=== PATIENT | male | born 1950 | race Two or more races ===

== ENCOUNTER 2019-01-06 17:36 | Inpatient (IN) | payer SELFPAY ==
--- NOTE | 2019-01-06 18:09 | ED Physician Documentation ---
History of Present Illness - Stated complaint Stated Complaint: GLF/DIZZY - Chief complaint Chief Complaint: Neuro - Additonal information Additional information: This is a 68-year-old male with a history of diabetes who presents due to left- sided weakness and poor coordination. Around noon patient began having some difficulty maintaining his balance and falling over. He also felt weak on his left side. Since this time he has continued to have progressive weakness and discoordination on the left Side. His family has not noticed any facial droop, or dysarthria. He has never had a stroke before. He has diabetes, glucose was ~200 in triage. Review of Systems Eyes: denies: Loss of vision Ears: denies: Loss of hearing Respiratory: denies: Dyspnea GI: denies: Abdominal Pain : denies: Dysuria Neurologic: reports: Focal weakness PD PAST MEDICAL HISTORY - Allergies Allergies/Adverse Reactions: Allergies Allergy/AdvReac Type Severity Reaction Status Date / Time No Known Drug Allergies Allergy Verified 01/06/19 17:44 PD ED PE NORMAL - Vitals Vital signs reviewed: Yes - General General: Alert and oriented X 3 - HEENT HEENT: Atraumatic, PERRL - Neck Neck: Supple, no meningeal sign - Cardiac Cardiac: RRR - Respiratory Respiratory: No respiratory distress, Clear bilaterally - Abdomen Abdomen: Soft, Non tender, Non distended - Derm Derm: Warm and dry - Extremities Extremities: No deformity - Neuro Neuro: Alert and oriented X 3, caregivers non medical 2-12 intact, No sensory deficit, Normal speech, Other (4+ out of 5 strength with elbow flexion extension on the left. Hand squeeze is 5 out of 5 symmetric. There is no arm drift on the left or right. There is slight left-sided leg drift. Patient has ataxia with [id number] on the left. He appears to have dysmetria at the limits of extension of his left arm as well. He is unable to stand without assistance, and has a ataxic gait. Visual pérez are intact.) - Psych Psych: Normal mood, Normal affect Results - Vitals Vitals: Vital Signs - 24 hr 01/06/19 01/06/19 01/06/19 17:44 19:13 19:30 Temperature 36.5 C Heart Rate 77 68 71 Respiratory 14 12 13 Rate Blood Pressure 172/86 H 124/77 130/76 O2 Saturation 99 97 96 Oxygen O2 Source Room air - EKG (time done) 18:31 Other comments: Other comments (Rate 81, rhythm sinus, there is no ST segment elevation or depression, T wave flattening in aVF. QTc 445) - Labs Labs: Laboratory Tests 01/06/19 01/06/19 01/06/19 17:54 18:05 18:05 WBC 5.2 RBC 4.68 L Hgb 14.2 Hct 40.6 L MCV 86.8 MCH 30.3 MCHC 35.0 RDW 13.0 Plt Count 195 MPV 9.6 Neut # (Auto) 3.0 Lymph # (Auto) 1.7 [place] # (Auto) 0.3 Eos # (Auto) 0.2 Baso # (Auto) 0.0 Absolute Nucleated RBC 0.00 Nucleated RBC % 0.0 PT 12.6 INR 1.1 APTT 29.5 Sodium Potassium Chloride Carbon Dioxide Anion Gap BUN Creatinine Estimated GFR (MDRD) Glucose POC Whole Bld Glucose 201 H Calcium Total Bilirubin AST ALT Alkaline Phosphatase Total Protein Albumin Globulin Albumin/Globulin Ratio Lipase TSH Urine Color Urine Clarity Urine pH Ur Specific [place] Urine Protein Urine Glucose (UA) Urine Ketones Urine Occult Blood Urine Nitrite Urine Bilirubin Urine Urobilinogen Ur Leukocyte Esterase Ur Microscopic Review Urine Culture Comments Ethyl Alcohol 01/06/19 01/06/19 01/06/19 18:05 18:05 18:40 WBC RBC Hgb Hct MCV MCH MCHC RDW Plt Count MPV Neut # (Auto) Lymph # (Auto) [place] # (Auto) Eos # (Auto) Baso # (Auto) Absolute Nucleated RBC Nucleated RBC % PT INR APTT Sodium 136 Potassium 3.5 Chloride 98 L Carbon Dioxide 28 Anion Gap 10.0 BUN 15 Creatinine 1.2 Estimated GFR (MDRD) 60 L Glucose 235 H POC Whole Bld Glucose 199 H Calcium 9.9 Total Bilirubin 1.4 H AST 21 ALT 20 Alkaline Phosphatase 82 Total Protein 8.3 H Albumin 4.6 Globulin 3.7 Albumin/Globulin Ratio 1.2 Lipase 31 TSH 3.03 Urine Color Urine Clarity Urine pH Ur Specific [place] Urine Protein Urine Glucose (UA) Urine Ketones Urine Occult Blood Urine Nitrite Urine Bilirubin Urine Urobilinogen Ur Leukocyte Esterase Ur Microscopic Review Urine Culture Comments Ethyl Alcohol < 5.0 01/06/19 18:45 WBC RBC Hgb Hct MCV MCH MCHC RDW Plt Count MPV Neut # (Auto) Lymph # (Auto) [place] # (Auto) Eos # (Auto) Baso # (Auto) Absolute Nucleated RBC Nucleated RBC % PT INR APTT Sodium Potassium Chloride Carbon Dioxide Anion Gap BUN Creatinine Estimated GFR (MDRD) Glucose POC Whole Bld Glucose Calcium Total Bilirubin AST ALT Alkaline Phosphatase Total Protein Albumin Globulin Albumin/Globulin Ratio Lipase TSH Urine Color LT. YELLOW Urine Clarity CLEAR Urine pH 6.0 Ur Specific [place] <=1.005 Urine Protein NEGATIVE Urine Glucose (UA) 250 H Urine Ketones NEGATIVE Urine Occult Blood NEGATIVE Urine Nitrite NEGATIVE Urine Bilirubin NEGATIVE Urine Urobilinogen 0.2 (NORMAL) Ur Leukocyte Esterase NEGATIVE Ur Microscopic Review NOT INDICATED Urine Culture Comments NOT INDICATED Ethyl Alcohol - Rads (name of study) CT head WO Radiology: Other (Area of old infarct without acute bleed or intracranial abnormality) CT angio Radiology: Prelim report reviewed (No evidence of acute large vessel occlusion, dissection, aneurysm. Several areas of 50-70% narrowing.) PD MEDICAL DECISION MAKING - ED course Complexity details: considered differential (Stroke, TIA, acute vestibular syndrome, electrolyte abnormality, ICH) ED course: Patient presents with clear left-sided ataxia and what appears to be very mild LLE weakness as well. Glucose is mildly elevated. CT and CTA performed showing no acute bleed or large vessel occlusion. He unfortunately is out of the window for TPA as his symptoms have been ongoing since at least noon. Labs are notable for hyperglycemia, otherwise unrevealing. On repeat examination his left sided ataxia and dysmetria are unchanged, he has no new symptoms and his strength actually appears quite good on the left, the initial drift I noted may have been simply the ataxia. He likely has an acute cerebellar stroke. I discussed our results, he was given aspirin, and admitted to the hospital for further work up and treatment. Dr. Douglas admitted the patient. Departure - Departure Disposition: 66 [facility] DC/Xfer Clinical Impression: CVA (cerebral vascular accident) Condition: Stable Discharge Date/Time: 01/06/19 20:51 NIHSS - Time Time: 06:00 - Level of Consciousness Level of consciousness: (0) Alert, Keenly responsive LOC Questions: (0) Answers both Q's correct LOC Commands: (0) Performs both correctly - Gaze Best Gaze: (0) Normal - Visual Visual: (0) No loss - Facial Palsy Facial Palsy: (0) Normal, symmetrical movement - Motor Arms (both separate) Motor Arm (right): (0) No drift Motor Arm (left): (0) No drift - Motor Legs (both separate) Motor Leg (right): (0) No drift Motor Leg (left): (1) Drift - Limb Ataxia Limb Ataxia: (2) Present in 2 limbs - Sensory Sensory: (0) Normal - Best Language Best Language: (0) No aphasia - Dysarthria Dysarthria: (0) Normal - Extinction and Inattention (formally neg Extinction and inattention: (0) No abnormality - Total Score/Results Total Score/Result: 3
[2019-01-06] MEDS ORDERED: IOVERSOL 320 100 ML VIAL IVP ONE ×2 (18:11→18:49)
[2019-01-06 18:13] LABS: BASOPHILS % (AUTO) 0.4 %; EOSINOPHILS # (AUTO) 0.2 10^3/uL (0.0-0.7); EOSINOPHILS % (AUTO) 3.3 %; HGB - HEMOGLOBIN 14.2 g/dL (14.0-18.0); LYMPHOCYTES # (AUTO) 1.7 10^3/uL (1.5-3.5); MEAN CORPUSCULAR HEMOGLOBIN 30.3 pg (27.0-31.0); MEAN CORPUSCULAR VOLUME 86.8 fL (80.0-94.0); MEAN PLATELET VOLUME 9.6 fL (7.4-11.4); MONOCYTES # (AUTO) 0.3 10^3/uL (0.0-1.0); MONOCYTES % (AUTO) 6.3 %; NEUTROPHILS % (AUTO) 57.8 %; PLT - PLATELET COUNT 195 10^3/uL (130-450); RED BLOOD COUNT 4.68 10^6/uL (4.70-6.10); WHITE BLOOD COUNT 5.2 x10^3/uL (4.8-10.8)
[2019-01-06 18:20] LABS: INR 1.1 (0.8-1.2); PT - PROTHROMBIN TIME 12.6 secs (9.9-12.6)
[2019-01-06 18:27] LABS: ALBUMIN 4.6 g/dL (3.2-5.5); ALBUMIN/GLOBULIN RATIO 1.2 (1.0-2.2); ALKALINE PHOSPHATASE 82 IU/L (42-121); ALT ALANINE AMINOTRANSFERASE 20 IU/L (10-60); AST ASPARTATE AMINOTRANSFERASE 21 IU/L (10-42); BILIRUBIN,TOTAL 1.4 mg/dL (0.2-1.0); BUN - BLOOD UREA NITROGEN 15 mg/dL (6-20); CALCIUM 9.9 mg/dL (8.5-10.3); CARBON DIOXIDE - CO2 28 mmol/L (21-32); CHLORIDE 98 mmol/L (101-111); CREATININE 1.2 mg/dL (0.6-1.2); GFR - MDRD 60 (>89); GLUCOSE 235 mg/dL (70-100); LIPASE 31 U/L (22-51); PARTIAL THROMBOPLASTIN TIME 29.5 secs (24.9-33.3); SODIUM 136 mmol/L (135-145); TOTAL PROTEIN 8.3 g/dL (6.7-8.2)
--- NOTE | 2019-01-06 18:41 | CT Report ---
Reason: Left sided weakness/ataxia Procedure Date: 01/06/2019 Accession Number: [id number] / [id number] Procedure: CT - Head W/O Stroke Protocol CPT Code: FULL RESULT: EXAM: CT HEAD EXAM DATE: 01/06/2019 06:29 PM. CLINICAL HISTORY: 68-year-old male. Left sided weakness/ataxia. COMPARISON: None. TECHNIQUE: Multiaxial CT images were obtained from the foramen magnum to the vertex. Reformats: Coronal. IV contrast: None. In accordance with CT protocol optimization, one or more of the following dose reduction techniques were utilized for this exam: automated exposure control, adjustment of mA and/or KV based on patient size, or use of iterative reconstructive technique. FINDINGS: Parenchyma: No intraparenchymal hemorrhage. No evidence of mass, midline shift, or CT findings of acute infarction. Connell-white differentiation is distinct. 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 No subdural or epidural collections identified. Ventricles: Normal in size and position. Sinuses and Orbits: Imaged paranasal sinuses, orbits, and mastoids show no significant abnormality. Bones: No evidence of fracture or calvarial defect. Other: None. IMPRESSION: 1. No CT evidence of acute intracranial abnormality, specifically no CT evidence of acute infarct, intracranial hemorrhage, mass effect, midline shift, or hydrocephalus. ASPECTS 10. 2. Likely chronic 16 mm infarct anterior left zarate radiata/left caudate (series 2 image 18) RADIA The critical test notification system was initiated by Dr. Tiera Brennan at 06:37 PM on 01/06/2019. The above critical test findings were discussed with Bob Farias by Dr. Tiera Brennan at 06:39 PM on 01/06/2019.
[2019-01-06 19:03] LABS: BILIRUBIN,URINE NEGATIVE (NEGATIVE); GLUCOSE, URINE (UA) 250 mg/dL (NEGATIVE); KETONES,URINE (UA) NEGATIVE (NEGATIVE); LEUKOCYTE ESTERASE, URINE NEGATIVE (NEGATIVE); NITRITE,URINE NEGATIVE (NEGATIVE); OCCULT BLOOD,URINE NEGATIVE (NEGATIVE); PROTEIN,URINE NEGATIVE (NEGATIVE); UROBILINOGEN,URINE 0.2 (NORMAL) E.U./dL (NORMAL)
--- NOTE | 2019-01-06 19:08 | CT Report ---
Reason: Left sided weakness/ataxia Procedure Date: 01/06/2019 Accession Number: [id number] / [id number] Procedure: CT - ANGIO NECK W CPT Code: FULL RESULT: EXAM: CT ANGIOGRAM HEAD AND NECK. EXAM DATE: 01/06/2019 06:29 PM. CLINICAL HISTORY: 68-year-old male. Left sided weakness/ataxia. COMPARISON: NECK ANGIO 01/06/2019 6:15 PM. TECHNIQUE: Routine axial helical CTA imaging was performed from the aortic arch through the [place] of [place]. Post contrast CT images of the head were obtained. Reconstructions: Routine multiplanar 3D MIP reconstructions. IV contrast: 80 mL Optiray 320. NASCET Criteria are used for stenosis measurements. In accordance with CT protocol optimization, one or more of the following dose reduction techniques were utilized for this exam: automated exposure control, adjustment of mA and/or KV based on patient size, or use of iterative reconstructive technique. FINDINGS: NONCONTRAST CT HEAD: Dictated separately. POSTCONTRAST CT HEAD: No abnormal enhancement. CT ANGIOGRAM EXTRACRANIAL CIRCULATION: The visualized arch is unremarkable. Great vessels are patent and unremarkable. Right Carotid: The common carotid, internal carotid, and external carotid arteries are widely patent. No dissection, significant atherosclerotic plaque, or calcification identified. Left Carotid: The common carotid, internal carotid, and external carotid arteries are widely patent. No dissection, significant atherosclerotic plaque, or calcification identified. Vertebrals: The left vertebral artery is dominant. The vertebrobasilar system shows no stenosis, dissection, aneurysm, or significant atherosclerotic disease. CT ANGIOGRAM INTRACRANIAL CIRCULATION: RIGHT: Internal Carotid artery: No evidence of dissection. No evidence of aneurysm along the intracranial ICA. Anterior Cerebral Artery: Focal high-grade, greater than 70% narrowing distal A2 segment right YAHAIRA (series 10 image 70) Middle Cerebral Artery: Patent without significant stenosis, aneurysm, or vascular malformation. Posterior Cerebral Artery: Patent without significant stenosis, aneurysm, or vascular malformation. Posterior Communicating Artery: Not visualized, aplastic versus markedly hypoplastic LEFT: Internal Carotid artery: Focal approximately 50% narrowing proximal supraclinoid left ICA. Anterior Cerebral Artery: Patent without significant stenosis, aneurysm, or vascular malformation. Middle Cerebral Artery: Patent without significant stenosis, aneurysm, or vascular malformation. Posterior Cerebral Artery: Patent without significant stenosis, aneurysm, or vascular malformation. Posterior Communicating Artery: Not visualized, aplastic versus markedly hypoplastic CENTRAL: Anterior Communicating Artery: Not visualized, aplastic versus markedly hypoplastic The dural venous sinuses are patent. Other: The visualized lung apices are clear. Mild to moderate multilevel degenerative spondylosis. No acute fracture or traumatic subluxation. The visualized soft tissues of the neck demonstrate no acute abnormality. IMPRESSION: CT HEAD: 1. Noncontrast CT head has been dictated simply. 2. No abnormal enhancement on the postcontrast CT head. CTA NECK: 1. No CTA evidence of hemodynamically significant stenosis, large vessel occlusion, acute dissection, aneurysm, or vascular malformation within extracranial arteries. CTA HEAD: 1. No CTA evidence of large vessel occlusion, acute dissection, aneurysm, or vascular malformation within intracranial arteries. 2. Focal high-grade, greater than 70% narrowing distal A2 segment right YAHAIRA (series 10 image 70) 3. Focal approximately 50% narrowing proximal supraclinoid left ICA. RADIA The critical test notification system was initiated by Dr. Tiera Brennan at 06:51 PM on 01/06/2019. The above critical test findings were discussed with Bob Farias by Dr. Tiera Brennan at 06:52 PM on 01/06/2019.
--- NOTE | 2019-01-06 19:08 | CT Report ---
Reason: Left sided weakness/ataxia Procedure Date: 01/06/2019 Accession Number: [id number] / [id number] Procedure: CT - ANGIO HEAD W/WO CPT Code: FULL RESULT: EXAM: CT ANGIOGRAM HEAD AND NECK. EXAM DATE: 01/06/2019 06:29 PM. CLINICAL HISTORY: 68-year-old male. Left sided weakness/ataxia. COMPARISON: NECK ANGIO 01/06/2019 6:15 PM. TECHNIQUE: Routine axial helical CTA imaging was performed from the aortic arch through the [place] of [place]. Post contrast CT images of the head were obtained. Reconstructions: Routine multiplanar 3D MIP reconstructions. IV contrast: 80 mL Optiray 320. NASCET Criteria are used for stenosis measurements. In accordance with CT protocol optimization, one or more of the following dose reduction techniques were utilized for this exam: automated exposure control, adjustment of mA and/or KV based on patient size, or use of iterative reconstructive technique. FINDINGS: NONCONTRAST CT HEAD: Dictated separately. POSTCONTRAST CT HEAD: No abnormal enhancement. CT ANGIOGRAM EXTRACRANIAL CIRCULATION: The visualized arch is unremarkable. Great vessels are patent and unremarkable. Right Carotid: The common carotid, internal carotid, and external carotid arteries are widely patent. No dissection, significant atherosclerotic plaque, or calcification identified. Left Carotid: The common carotid, internal carotid, and external carotid arteries are widely patent. No dissection, significant atherosclerotic plaque, or calcification identified. Vertebrals: The left vertebral artery is dominant. The vertebrobasilar system shows no stenosis, dissection, aneurysm, or significant atherosclerotic disease. CT ANGIOGRAM INTRACRANIAL CIRCULATION: RIGHT: Internal Carotid artery: No evidence of dissection. No evidence of aneurysm along the intracranial ICA. Anterior Cerebral Artery: Focal high-grade, greater than 70% narrowing distal A2 segment right YAHAIRA (series 10 image 70) Middle Cerebral Artery: Patent without significant stenosis, aneurysm, or vascular malformation. Posterior Cerebral Artery: Patent without significant stenosis, aneurysm, or vascular malformation. Posterior Communicating Artery: Not visualized, aplastic versus markedly hypoplastic LEFT: Internal Carotid artery: Focal approximately 50% narrowing proximal supraclinoid left ICA. Anterior Cerebral Artery: Patent without significant stenosis, aneurysm, or vascular malformation. Middle Cerebral Artery: Patent without significant stenosis, aneurysm, or vascular malformation. Posterior Cerebral Artery: Patent without significant stenosis, aneurysm, or vascular malformation. Posterior Communicating Artery: Not visualized, aplastic versus markedly hypoplastic CENTRAL: Anterior Communicating Artery: Not visualized, aplastic versus markedly hypoplastic The dural venous sinuses are patent. Other: The visualized lung apices are clear. Mild to moderate multilevel degenerative spondylosis. No acute fracture or traumatic subluxation. The visualized soft tissues of the neck demonstrate no acute abnormality. IMPRESSION: CT HEAD: 1. Noncontrast CT head has been dictated simply. 2. No abnormal enhancement on the postcontrast CT head. CTA NECK: 1. No CTA evidence of hemodynamically significant stenosis, large vessel occlusion, acute dissection, aneurysm, or vascular malformation within extracranial arteries. CTA HEAD: 1. No CTA evidence of large vessel occlusion, acute dissection, aneurysm, or vascular malformation within intracranial arteries. 2. Focal high-grade, greater than 70% narrowing distal A2 segment right YAHAIRA (series 10 image 70) 3. Focal approximately 50% narrowing proximal supraclinoid left ICA. RADIA The critical test notification system was initiated by Dr. Tiera Brennan at 06:51 PM on 01/06/2019. The above critical test findings were discussed with Bob Farias by Dr. Tiera Brennan at 06:52 PM on 01/06/2019.
[2019-01-06 19:19] LABS: CLARITY,URINE CLEAR (CLEAR)
[2019-01-06] MEDS ORDERED: ASPIRIN CHEW 81 MG TABLET PO STA (19:32)
[2019-01-06] MEDS ORDERED: ACETAMINOPHEN 325 MG TABLET PO PRN (19:36)
[2019-01-06] MEDS ORDERED: SODIUM CHLORIDE FLUSH 0.9% 10 ML SYRINGE IVP PRN (19:36)
--- NOTE | 2019-01-06 20:36 | HISTORY & PHYSICAL EXAMINATION ---
Chief Complaint - Chief Complaint Chief Complaint: Fall History of Present Illness - Admitted From Admitted From:: Home - History Obtained From Records Reviewed: Yes History obtained from: Patient, Son, ER Physician - History of Present Illness HPI Comment/Other: This is a 68 year old right handed male with a past medical history significant for diabetes who presented to the emergency department today after he felt left sided weakness in his left upper and lower extremities. The symptoms began around noon but he did not seek medical attention until 530pm. He reports that the weakness was mild on his left side and feels that most of it has resolved. He also had difficulties walking and maintaining his balance. He fell three times today but caught himself by holding on to the wall. He reports no slurred speech, dizziness or lightheadedness. He does have some numbness in his left lower extremity. He is a diabetic and was previously on metformin but he stopped this on his own when he went back to [facility] about 6 months. He also reports a his tory of hypertension but is not taking medications. He is a nonsmoker. He reports no prior history of stroke to his knowledge. He is complaining of mild left sided chest pain. He reports it has been intermittent from quite some time now. It is not worse with exertion and usually occurs at rest. It is non radiating and not associated with dyspnea, nausea, vomiting, and diaphoresis. In the emergency department, he underwent a CT of the head which was negative for hemorrhage but was concerning for an old 16mm infarct in the left zarate radiata/left caudate. CTA did reveal greater than 70% stenosis in the distal A2 segment right YAHAIRA. He was not a candidate for TPA given his last presentation af ter the onset of his symptoms. He was administered Aspirin 325mg and Medicine was consulted for admission. I did speak with the patient regarding code status and he would like to be a full code. History - Past Medical History Cardiovascular: reports: Hypertension Endocrine/Autoimmune: reports: Type 2 diabetes - Family & Social History Family History Comment/Other: He reports no family history to his knowledge. Denies a history of CVA and diabetes in his family. Living arrangement: At home Living Situation: With family Social History Notes: He currently lives on [address] [address] [facility] with his family. He is originially from [facility] and was just there for about 5 months. He does not currently work. Denies smoking and alcohol use. - Substance History Use: Uses substance without health or social issues: NONE Meds/Allgy - Allergies Allergies/Adverse Reactions: Allergies Allergy/AdvReac Type Severity Reaction Status Date / Time No Known Drug Allergies Allergy Verified 01/06/19 17:44 Review of Systems - Constitutional Constitutional: denies: Fatigue, Fever, Chills, Weakness - Eyes Eyes: denies: Vision loss - Ears, Nose & Throat Ears, Nose & Throat: denies: Nasal congestion - Cardiovascular Cariovascular: reports: Chest pain. denies: Palpitations, Lightheadedness, Syncope, Exertional dyspnea, Decr. exercise tolerance - Respiratory Respiratory: denies: Cough, SOB at rest, SOB with exertion - Gastrointestinal Gastrointestinal: denies: Abdominal pain, Nausea, Vomiting - Musculoskeletal Musculoskeletal: reports: Muscle weakness. denies: Limited range of motion - Integumentary Integumentary: denies: Rash - Neurological Neurological: reports: Focal weakness, Numbness, Abnormal gait, Incoordination. denies: General weakness, Headache, Dizziness, Memory problems, Slurred speech - All Other Systems All Other Systems: reports: Reviewed and negative Prior Level of Functionality: Independent with ADL's. Exam - Vital Signs Reviewed Vital Signs: Yes Vital Signs: Vital Signs x48h Temp Pulse Resp BP Pulse Ox 01/06/19 19:30 71 13 130/76 96 01/06/19 19:13 68 12 124/77 97 01/06/19 17:44 36.5 C 77 14 172/86 H 99 - Physical Exam General Appearance: positive: No acute distress, Alert Eyes Bilateral: positive: Normal inspection, Conjunctivae nml ENT: positive: ENT inspection nml Neck: positive: Nml inspection Respiratory: positive: No respiratory distress. negative: Wheezes, Rales, Rhonchi Cardiovascular: positive: Regular rate & rhythm, No murmur. negative: Tachycardia, Bradycardia Abdomen: positive: Non-tender, No distention. negative: Tenderness Skin: positive: Color nml, No rash, Warm, Dry Extremities: positive: Full ROM, No pedal edema Neurologic/Psychiatric: positive: Oriented x3, CN's nml (2-12), Other (He has no sensory deficit. 5/5 motor strength in all four extremities. He does have finger to nose dysmetria with left extremity as well as heel to lucia on the left side. No pronator drift.). negative: Disoriented to person, Disoriented to place, Disoriented to time, Weakness, Sensory loss, Facial droop, Slurred/abnml speech Conclusion/Plan - Problem List (1) CVA (cerebral vascular accident) Conclusion/Plan: His presentation is concerning for a cerebellar CVA given his ataxic gait and dysmetria. CT of the head also revealed old left sided infarct. Will continue Aspirin 81mg daily and start Lipitor 81mg daily. Allow for permissive hypertension. Check A1c and lipid panel. Brain MRI in the AM. Check Echo and monitor on telemetry. PT/OT. Qualifiers: CVA mechanism: unspecified Qualified Code(s): I63.9 - Cerebral infarction, unspecified (2) Chest pain Conclusion/Plan: He does have risk factors for heart disease including diabetes although his symptoms are consistent with typical angina. His EKG does show t-wave inversion leads III but is otherwise unremarkable. Will check troponins and Echo. (3) Hypertension Conclusion/Plan: Currently normotenisve. Will allow for permissive hypertension over first 24 hours then start Lisinopril. Qualifiers: Hypertension type: essential hypertension Qualified Code(s): I10 - Essential (primary) hypertension (4) Type 2 diabetes mellitus Conclusion/Plan: His blood glucose is elevated at 200. Will starting sliding scale and CC diet. Check A1c. Will likely be discharged on Metformin unless A1c is significantly elevated. Qualifiers: Diabetes mellitus ferry terminal agent insulin use: without ferry terminal agent use - Lab Results Fish Bones: 01/07/19 04:45 01/07/19 04:45 - Diagnostic Imaging Results Diagnostic Imaging Results: positive: Final report reviewed - EKG Results EKG Interpreted Independently: Yes EKG Findings: Sinus rhythm. T-wave inversion in lead III. No other signs of ischemia. Core Measures - Anticipated LOS I expect patient to be DC'd or transferred within 96 hours.: Yes - Issues Hospital Issues and Management Plan: Suspected CVA requiring MRI and PT/OT. - DVT/VTE - Prophylaxis VTE/DVT Device ordered at admit?: Yes VTE/DVT Prophylaxis med ordered at admit?: Yes - Stroke - Rehab Assessment Rehab services assessment to be ordered?: Yes
[2019-01-06 21:21] LABS: HB2 TOTAL 14.4 g/dL; HEMOGLOBIN A1C 1.38 g/dL; HEMOGLOBIN A1C % 10.9 % (4.6-6.2)
[2019-01-06] MEDS: HEPARIN 5,000 UNIT/ML VIAL SUBQ SCH (21:37)
[2019-01-06] MEDS: ATORVASTATIN 40 MG TABLET PO SCH (21:37)
[2019-01-06] MEDS: INSULIN ASPART 300 UNIT/3 ML PEN SUBQ SCH (21:50)
[2019-01-07] MEDS: SODIUM CHLORIDE FLUSH 0.9% 10 ML SYRINGE IVP SCH ×3 (01:32→16:07)
[2019-01-07 05:20] LABS: BASOPHILS % (AUTO) 0.7 %; EOSINOPHILS # (AUTO) 0.2 10^3/uL (0.0-0.7); EOSINOPHILS % (AUTO) 4.5 %; HGB - HEMOGLOBIN 13.2 g/dL (14.0-18.0); LYMPHOCYTES # (AUTO) 1.6 10^3/uL (1.5-3.5); LYMPHOCYTES % (AUTO) 35.5 %; MEAN CORPUSCULAR HEMOGLOBIN 29.1 pg (27.0-31.0); MEAN CORPUSCULAR HGB CONC 33.5 g/dL (32.0-36.0); MEAN CORPUSCULAR VOLUME 86.8 fL (80.0-94.0); MEAN PLATELET VOLUME 9.9 fL (7.4-11.4); MONOCYTES # (AUTO) 0.4 10^3/uL (0.0-1.0); MONOCYTES % (AUTO) 8.9 %; NEUTROPHILS # (AUTO) 2.2 10^3/uL (1.5-6.6); NEUTROPHILS % (AUTO) 49.9 %; PLT - PLATELET COUNT 189 10^3/uL (130-450); RED BLOOD COUNT 4.54 10^6/uL (4.70-6.10); RED CELL DISTRIBUTION WIDTH 13.2 % (12.0-15.0); WHITE BLOOD COUNT 4.4 x10^3/uL (4.8-10.8)
[2019-01-07 05:33] LABS: BUN - BLOOD UREA NITROGEN 13 mg/dL (6-20); CALCIUM 9.5 mg/dL (8.5-10.3); CARBON DIOXIDE - CO2 28 mmol/L (21-32); CHLORIDE 104 mmol/L (101-111); CHOL/HDL RATIO 3.6 (<5.0); CHOLESTEROL 173 mg/dL; CREATININE 1.1 mg/dL (0.6-1.2); GFR - MDRD 67 (>89); GLUCOSE 186 mg/dL (70-100); HDL CHOLESTEROL 48 mg/dL; LDL CHOLESTEROL,CALCULATED 111 mg/dL; LDL/HDL RATIO 2.3 (<3.6); SODIUM 142 mmol/L (135-145); VLDL CHOLESTEROL 14 mg/dL
[2019-01-07] MEDS: HEPARIN 5,000 UNIT/ML VIAL SUBQ SCH ×2 (08:09→20:23)
[2019-01-07] MEDS: INSULIN ASPART 300 UNIT/3 ML PEN SUBQ SCH ×4 (08:11→20:50)
[2019-01-07] MEDS ORDERED: INSULIN GLARGINE 300 UNIT/3 ML PEN SUBQ SCH (09:00)
[2019-01-07] MEDS ORDERED: ASPIRIN EC 81 MG TABLET PO SCH (09:00)
--- NOTE | 2019-01-07 12:54 | MRI Report ---
Reason: Ataxia. Concern for cerebellar stroke. Procedure Date: 01/07/2019 Accession Number: [id number] / [id number] Procedure: MRI - Brain W/O CPT Code: Final Report FULL RESULT: EXAM: MRI BRAIN WITHOUT CONTRAST EXAM DATE: 01/07/2019 12:04 PM. CLINICAL HISTORY: Ataxia. Concern for cerebellar stroke. Left-sided weakness. COMPARISON: HEAD ANGIO 01/06/2019 6:15 PM HEAD W/O STROKE PROTOCOL 01/06/2019 6:15 PM NECK ANGIO 01/06/2019 6:15 PM. TECHNIQUE: Multiplanar, multisequence T1-weighted and fluid-sensitive MR sequences of the brain were performed. Sequences optimized for routine evaluation. Other: None. IV Contrast: None. FINDINGS: Brain Volume: Normal for age. Parenchyma/Dura: An oval 12 mm acute infarct is seen in the right posterior frontal centrum semiovale. This is deep to the paracentral lobule and precentral gyrus. Additionally, there are multiple, 10-15, cortical-based foci of restricted diffusion seen in the high right paracentral lobule and adjacent posterior frontal lobe. Punctate white matter focus is seen in the anterior right frontal centrum semiovale as well. Associated increased FLAIR signal is present. No hemorrhage is noted. Area of encephalomalacia is seen in the left frontal zarate radiata lateral to the frontal horn of the left lateral ventricle. Punctate hypointense magnetic susceptibility is seen in this location consistent with hemosiderin from old blood breakdown products. No acute hematoma. No intracranial mass is evident. Ventricles/Cisterns: Mild ex vacuo enlargement of the frontal horn and anterior body of the left lateral ventricle is noted. No hydrocephalus. No abnormal extra-axial fluid collection or hemorrhage. Orbits: Symmetric and unremarkable. Sella [place]: The pituitary gland, cavernous sinuses, suprasellar cistern and optic chiasm are unremarkable. IAC: Symmetric and unremarkable. Vasculature: Normal signal flow void is seen in the major arterial structures at the skull base. Sinuses: No acute appearing sinus disease. Bones: No focal pathologic appearing marrow signal changes. Other: None. IMPRESSION: 1. Acute infarcts are seen in the high right paracentral lobule and adjacent posterior frontal lobe. 12 mm focus is seen in the posterior frontal centrum semiovale. Multiple punctate cortical foci are present. No associated hemorrhage. 2. Cystic encephalomalacia in the left frontal zarate radiata superior to the anterior lentiform nucleus consistent with sequela of old infarct. RADIA The call report notification system was initiated by Dr. Bob Simon at 12:41 PM on 01/07/2019. The above call report findings were discussed with Referring Treating Physician by Dr. Bob Simon at 12:48 PM on 01/07/2019.
--- NOTE | 2019-01-07 14:24 | PROVIDER PROGRESS NOTE ---
Assessment/Plan - Problem List (1) CVA (cerebral vascular accident) Qualifiers: CVA mechanism: unspecified Qualified Code(s): I63.9 - Cerebral infarction, unspecified Assessment/Plan: MRI reveals pt has acute infarcts in right brain at 12 mm focus. PT/OT still has left side weakness with balance issue, and has significant fall risk. ECHO is pending now continue Aspirin and lipitor continue PT/OT continue tele and vital monitor (2) Chest pain Conclusion/Plan: pt denies chest pain today. twice of troponin is negative, ECHO is pending now. (3) Hypertension Conclusion/Plan: Currently normotenisve. stable (4) Type 2 diabetes mellitus Conclusion/Plan: pt has elevated glucose level, increase Lantus to 15 units from 10 units daily continue slide scale, ACHS to check glucose level, hypoglycemia protocol - Current Meds Current Meds: Current Medications Generic Name Dose Route Start Last Admin Trade Name Freq PRN Reason Stop Dose Admin Aspirin 81 mg 01/07/19 09:00 01/07/19 08:09 Ecotrin PO 81 mg DAILY VIRIDIANA Administration Atorvastatin Calcium 80 mg 01/06/19 21:00 01/06/19 21:37 Lipitor PO 80 mg QPM VIRIDIANA Administration Heparin Sodium (Porcine) 5,000 unit 01/06/19 21:00 01/07/19 08:09 SUBQ 5,000 unit BID VIRIDIANA Administration Insulin Aspart 1 - 9 unit 01/06/19 21:00 01/07/19 12:59 Novolog SUBQ 5 unit 0800,1200,1700,2100 VIRIDIANA Administration Protocol Insulin Glargine 10 unit 01/07/19 09:00 01/07/19 08:12 Lantus Solostar SUBQ 10 unit DAILY VIRIDIANA Administration Sodium Chloride 10 ml 01/07/19 01:00 01/07/19 08:11 Normal Saline Flush 0.9% IVP 10 ml 0100,0900,1700 VIRIDIANA Administration - Lab Result Fish Bone Diagrams: 01/07/19 04:45 01/07/19 04:45 Objective Vital Signs: Vital Signs - 24 hr 01/06/19 01/06/19 01/06/19 17:44 19:13 19:30 Temperature 36.5 C Heart Rate 77 68 71 Heart Rate [ Brachial] Respiratory 14 12 13 Rate Blood Pressure 172/86 H 124/77 130/76 Blood Pressure [Right Brachial artery] O2 Saturation 99 97 96 01/06/19 01/06/19 01/06/19 20:45 21:00 21:25 Temperature 36.7 C 36.7 C 36.7 C Heart Rate 71 Heart Rate [ 71 71 Brachial] Respiratory 16 16 16 Rate Blood Pressure Blood Pressure 143/54 H 143/54 H [Right Brachial artery] O2 Saturation 99 99 98 01/06/19 01/07/19 01/07/19 23:55 03:25 07:32 Temperature 36.3 C L 36.7 C 36.6 C Heart Rate Heart Rate [ 70 68 71 Brachial] Respiratory 16 16 18 Rate Blood Pressure Blood Pressure 145/78 H 116/60 137/74 H [Right Brachial artery] O2 Saturation 100 97 97 01/07/19 13:08 Temperature 36.8 C Heart Rate Heart Rate [ 75 Brachial] Respiratory 16 Rate Blood Pressure Blood Pressure 155/84 H [Right Brachial artery] O2 Saturation 98 Oxygen O2 Source Room air I&O (Last 24 Hrs): Intake and Output Totals x24h 01/05/19 01/06/19 01/07/19 23:59 23:59 23:59 Intake Total 150 1450 Output Total 375 Balance 150 1075 - Results Results: Laboratory Results WBC 4.4 x10^3/uL (4.8-10.8) L 01/07/19 04:45 RBC 4.54 10^6/uL (4.70-6.10) L 01/07/19 04:45 Hgb 13.2 g/dL (14.0-18.0) L 01/07/19 04:45 Hct 39.4 % (42.0-52.0) L 01/07/19 04:45 MCV 86.8 fL (80.0-94.0) 01/07/19 04:45 MCH 29.1 pg (27.0-31.0) 01/07/19 04:45 MCHC 33.5 g/dL (32.0-36.0) 01/07/19 04:45 RDW 13.2 % (12.0-15.0) 01/07/19 04:45 Plt Count 189 10^3/uL (130-450) 01/07/19 04:45 MPV 9.9 fL (7.4-11.4) 01/07/19 04:45 Neut # (Auto) 2.2 10^3/uL (1.5-6.6) 01/07/19 04:45 Lymph # (Auto) 1.6 10^3/uL (1.5-3.5) 01/07/19 04:45 [place] # (Auto) 0.4 10^3/uL (0.0-1.0) 01/07/19 04:45 Eos # (Auto) 0.2 10^3/uL (0.0-0.7) 01/07/19 04:45 Baso # (Auto) 0.0 10^3/uL (0.0-0.1) 01/07/19 04:45 Absolute Nucleated RBC 0.00 x10^3/uL 01/07/19 04:45 Nucleated RBC % 0.0 /100WBC 01/07/19 04:45 PT 12.6 secs (9.9-12.6) 01/06/19 18:05 INR 1.1 (0.8-1.2) 01/06/19 18:05 APTT 29.5 secs (24.9-33.3) 01/06/19 18:05 Sodium 142 mmol/L (135-145) 01/07/19 04:45 Potassium 3.6 mmol/L (3.5-5.0) 01/07/19 04:45 Chloride 104 mmol/L (101-111) 01/07/19 04:45 Carbon Dioxide 28 mmol/L (21-32) 01/07/19 04:45 Anion Gap 10.0 (6-13) 01/07/19 04:45 BUN 13 mg/dL (6-20) 01/07/19 04:45 Creatinine 1.1 mg/dL (0.6-1.2) 01/07/19 04:45 Estimated GFR (MDRD) 67 (>89) L 01/07/19 04:45 Glucose 186 mg/dL (70-100) H 01/07/19 04:45 POC Whole Bld Glucose 268 mg/dL (70 - 100) H 01/07/19 11:28 Glycated Hemoglobin 10.9 % (4.6-6.2) H 01/06/19 20:59 Estim Average Glucose 266 (70-100) H 01/06/19 20:59 Calcium 9.5 mg/dL (8.5-10.3) 01/07/19 04:45 Total Bilirubin 1.4 mg/dL (0.2-1.0) H 01/06/19 18:05 AST 21 IU/L (10-42) 01/06/19 18:05 ALT 20 IU/L (10-60) 01/06/19 18:05 Alkaline Phosphatase 82 IU/L (42-121) 01/06/19 18:05 Troponin I High Sens 4.9 pg/mL (2.3-19.7) 01/07/19 04:45 Total Protein 8.3 g/dL (6.7-8.2) H 01/06/19 18:05 Albumin 4.6 g/dL (3.2-5.5) 01/06/19 18:05 Globulin 3.7 g/dL (2.1-4.2) 01/06/19 18:05 Albumin/Globulin Ratio 1.2 (1.0-2.2) 01/06/19 18:05 Triglycerides 72 mg/dL (-149) 01/07/19 04:45 Cholesterol 173 mg/dL (-199) 01/07/19 04:45 LDL Cholesterol, Calc 111 mg/dL (-129) 01/07/19 04:45 VLDL Cholesterol 14 mg/dL 01/07/19 04:45 HDL Cholesterol 48 mg/dL (60-) L 01/07/19 04:45 LDL/HDL Ratio 2.3 (<3.6) 01/07/19 04:45 Cholesterol/HDL Ratio 3.6 (<5.0) 01/07/19 04:45 Lipase 31 U/L (22-51) 01/06/19 18:05 TSH 3.03 uIU/mL (0.34-5.60) 01/06/19 18:05 Urine Color LT. YELLOW 01/06/19 18:45 Urine Clarity CLEAR (CLEAR) 01/06/19 18:45 Urine pH 6.0 PH (5.0-7.5) 01/06/19 18:45 Ur Specific [place] <=1.005 (1.002-1.030) 01/06/19 18:45 Urine Protein NEGATIVE mg/dL (NEGATIVE) 01/06/19 18:45 Urine Glucose (UA) 250 mg/dL (NEGATIVE) H 01/06/19 18:45 Urine Ketones NEGATIVE mg/dL (NEGATIVE) 01/06/19 18:45 Urine Occult Blood NEGATIVE (NEGATIVE) 01/06/19 18:45 Urine Nitrite NEGATIVE (NEGATIVE) 01/06/19 18:45 Urine Bilirubin NEGATIVE (NEGATIVE) 01/06/19 18:45 Urine Urobilinogen 0.2 (NORMAL) E.U./dL (NORMAL) 01/06/19 18:45 Ur Leukocyte Esterase NEGATIVE (NEGATIVE) 01/06/19 18:45 Ur Microscopic Review NOT INDICATED 01/06/19 18:45 Urine Culture Comments NOT INDICATED 01/06/19 18:45 Ethyl Alcohol < 5.0 mg/dL 01/06/19 18:05 ABX Reporting Has patient been on IV antibiotics over the past 48 hours?: No
[2019-01-07] MEDS: ATORVASTATIN 40 MG TABLET PO SCH (20:21)
[2019-01-08 05:24] LABS: BASOPHILS % (AUTO) 0.7 %; EOSINOPHILS # (AUTO) 0.2 10^3/uL (0.0-0.7); EOSINOPHILS % (AUTO) 5.3 %; HGB - HEMOGLOBIN 13.1 g/dL (14.0-18.0); LYMPHOCYTES # (AUTO) 1.7 10^3/uL (1.5-3.5); LYMPHOCYTES % (AUTO) 36.9 %; MEAN CORPUSCULAR VOLUME 88.1 fL (80.0-94.0); MONOCYTES # (AUTO) 0.4 10^3/uL (0.0-1.0); MONOCYTES % (AUTO) 9.1 %; NEUTROPHILS # (AUTO) 2.2 10^3/uL (1.5-6.6); NEUTROPHILS % (AUTO) 47.6 %; PLT - PLATELET COUNT 172 10^3/uL (130-450); RED BLOOD COUNT 4.37 10^6/uL (4.70-6.10); RED CELL DISTRIBUTION WIDTH 12.9 % (12.0-15.0); WHITE BLOOD COUNT 4.5 x10^3/uL (4.8-10.8)
[2019-01-08] MEDS: SODIUM CHLORIDE FLUSH 0.9% 10 ML SYRINGE IVP SCH ×2 (06:05→08:47)
[2019-01-08] MEDS ORDERED: ASPIRIN 325 MG TABLET PO SCH (08:00)
[2019-01-08 08:28] LABS: ALBUMIN 4.2 g/dL (3.2-5.5); ALBUMIN/GLOBULIN RATIO 1.2 (1.0-2.2); BILIRUBIN,TOTAL 1.9 mg/dL (0.2-1.0); CALCIUM 9.6 mg/dL (8.5-10.3); CREATININE 1.2 mg/dL (0.6-1.2); TOTAL PROTEIN 7.6 g/dL (6.7-8.2)
[2019-01-08] MEDS: HEPARIN 5,000 UNIT/ML VIAL SUBQ SCH (08:36)
[2019-01-08] MEDS: INSULIN ASPART 300 UNIT/3 ML PEN SUBQ SCH (08:37)
[2019-01-08] MEDS ORDERED: INSULIN GLARGINE 300 UNIT/3 ML PEN SUBQ SCH (09:00)
--- NOTE | 2019-01-08 11:31 | Discharge Plan ---
Discharge Plan Problem Reviewed?: Yes Disposition: Home, Self Care Condition: Stable Prescriptions: Atorvastatin [Lipitor] 40 mg PO QPM #15 tablet Clopidogrel [Plavix] 75 mg PO DAILY #15 tablet Diet: Diabetic Activity Restrictions: Activity as Tolerated Shower Restrictions: No (fall precaution) Instruction Topics: Clopidogrel Bisulfate Oral tablet, Atorvastatin tablets Health Concerns: stroke, medical non-compliance Plan of Treatment: you were found to have stroke. you are prescribed new meds Plavix and Lipitor daily. [place] wheel walker is prescribed for you. please followup your PCP, neurologist as out-pt, and out-PT to manage this medical issue. Advise you make medical-compliance, followup your PCP to manage your diabetes Care Goals: stabilization and improvement of your medical problems Assessment: assessment as the above Additional Instructions or Follow Up instructions: you may followup your PCP in one week, followup neurologist as out-pt. should your symptoms return or worsen, you may present ER or call 911 for help. Follow-Up Care: Outpatient Rehab - PT, [facility] - [facility] No Smoking: If you smoke, Please STOP! Call for help.
--- NOTE | 2019-01-08 11:59 | DISCHARGE SUMMARY ---
Discharge Summary Admit Date: 01/06/19 Discharge Date: 01/08/19 Discharging Provider: EDUARDO Condition at Discharge: Stable Discharge Disposition: Home, Self Care Discharge Facility Name: home - DIAGNOSES Admission Diagnoses: (1) CVA (cerebral vascular accident) (2) Chest pain (3) Hypertension (4) Type 2 diabetes mellitus Discharge Diagnoses with Status of Each Condition: 1) CVA (cerebral vascular accident) stable. MRI reveals pt has right brain infarcts. PT/OT evaluate and treated pt, recommended pt can be safely d/c. pt is prescribed FWW. I saw pt walked from bath to his bed without balance issue. pt was educated how to prevent of fall. Out-pt PT is recommended for pt. pt is prescribed Plavix, Aspirin, Lipitor. (2) Chest pain pt report he has no chest pain. Troponin was negative, EKG and ECHO were unremarkable (3) Hypertension stable (4) Type 2 diabetes mellitus pt did not take any DM meds at least 8 months. pt has no more home meds Metfo rmin, pt is prescribed. pt is advised to followup his PCP continue manage his DM (5) medical non-compliance pt did not take any DM meds at least 8 months. pt was educated the importance of medical compliance, advise pt make medical compliance - HPI History of Present Illness: refer from Dr. Douglas on 01/06/19 HPI This is a 68 year old right handed male with a past medical history significant for diabetes who presented to the emergency department today after he felt left sided weakness in his left upper and lower extremities. The symptoms began around noon but he did not seek medical attention until 530pm. He reports that the weakness was mild on his left side and feels that most of it has resolved. He also had difficulties walking and maintaining his balance. He fell three times today but caught himself by holding on to the wall. He reports no slurred speech, dizziness or lightheadedness. He does have some numbness in his left lower extremity. He is a diabetic and was previously on metformin but he stopped this on his own when he went back to [facility] about 6 months. He also reports a history of hypertension but is not taking medications. He is a nonsmoker. He reports no prior history of stroke to his knowledge. He is complaining of mild left sided chest pain. He reports it has been intermittent from quite some time now. It is not worse with exertion and usually occurs at rest. It is non radiating and not associated with dyspnea, nausea, vomiting, and diaphoresis. In the emergency department, he underwent a CT of the head which was negative for hemorrhage but was concerning for an old 16mm infarct in the left zarate radiata/left caudate. CTA did reveal greater than 70% stenosis in the distal A2 segment right YAHAIRA. He was not a candidate for TPA given his last presentation after the onset of his symptoms. He was administered Aspirin 325mg and Medicine was consulted for admission. I did speak with the patient regarding code status and he would like to be a full code. - HOSPITAL COURSE Hospital Course: pt was admitted for stroke, left side weakness. pt was found to have acute stroke on MRI of brain. pt's recovery is fast from stroke. pt has no dysphagia issue, pt can safely walk. PT/OT evaluated and treated pt, and recommend pt can be safely d/c home. pt is prescribed FWW, aspirin, plavix, lipitor and Metformin. The detail hospital course is as the below. 1) CVA (cerebral vascular accident) stable. MRI reveals pt has right brain infarcts. PT/OT evaluate and treated pt, recommended pt can be safely d/c. pt is prescribed FWW. I saw pt walked from bath to his bed without balance issue. pt was educated how to prevent of fall. Out-pt PT is recommended for pt. pt is prescribed Plavix, Aspirin, Lipitor. (2) Chest pain pt report he has no chest pain. Troponin was negative, EKG and ECHO were unremarkable (3) Hypertension stable (4) Type 2 diabetes mellitus pt did not take any DM meds at least 8 months. pt has no more home meds Metformin, pt is prescribed. pt is advised to followup his PCP continue manage his DM (5) medical non-compliance pt did not take any DM meds at least 8 months. pt was educated the importance of medical compliance, advise pt make medical compliance - ALLERGIES Allergies/Adverse Reactions: Allergies Allergy/AdvReac Type Severity Reaction Status Date / Time No Known Drug Allergies Allergy Verified 01/06/19 17:44 - MEDICATIONS Home Medications: Ambulatory Orders Medication Instructions Recorded Confirmed Aspirin Chewable [[place] 81 mg PO DAILY #30 tablet 01/08/19 Aspirin] Atorvastatin [Lipitor] 40 mg PO QPM #15 tablet 01/08/19 Clopidogrel [Plavix] 75 mg PO DAILY #15 tablet 01/08/19 metFORMIN [Glucophage] 500 mg PO BIDWM #60 tablet 01/08/19 - PHYSICAL EXAM AT DISCHARGE General Appearance: positive: No acute distress, Alert. negative: Lethargic Eyes Bilateral: positive: Normal inspection, PERRL, No lid inflammation ENT: positive: ENT inspection nml, Pharynx nml, No signs of dehydration. negative: Purulent nasal drainage Neck: positive: Nml inspection, Thyroid nml, No JVD, Trachea midline. negative: Thyromegaly, Lymphadenopathy (R), Lymphadenopathy (L), Stiff neck, Tracheal deviation Respiratory: positive: Chest non-tender, No respiratory distress, Breath sounds nml. negative: Wheezes, Rales, Rhonchi Cardiovascular: positive: Regular rate & rhythm, No murmur, No gallop. negative: Irregularly irregular, Extrasystoles, Tachycardia, Bradycardia, JVD present, Systolic murmur, Diastolic murmur Peripheral Pulses: positive: 2+ Abdomen: positive: Non-tender, No organomegaly, Nml bowel sounds, No distention. negative: Tenderness, Guarding, Rebound Back: positive: Nml inspection. negative: CVA tenderness (R), CVA tenderness (L) Skin: positive: Color nml, No rash, Warm, Dry. negative: Cyanosis, Diaphoresis, Pallor Extremities: positive: Non-tender, Nml appearance. negative: Calf tenderness, Joint swelling, Tricia's sign/cords Neurologic/Psychiatric: positive: Oriented x3, Sensation nml, Mood/affect nml. negative: Weakness, Sensory loss, Facial droop, Slurred/abnml speech, Depressed mood/affect - LABS Result Diagrams: 01/08/19 04:50 01/08/19 08:04 - FOLLOW UP Follow Up: you were found to have stroke. you are prescribed new meds Plavix and Lipitor daily. [place] wheel walker is prescribed for you. please followup your PCP, neurologist as out-pt, and out-PT to manage this medical issue. Advise you make medical-compliance, followup your PCP to manage your diabetes you may followup your PCP in one week, followup neurologist as out-pt. should your symptoms return or worsen, you may present ER or call 911 for help. - TIME SPENT Time Spent in Discharge (Minutes): 50
[2019-01-08 12:23] VITALS: BP 162/81
== END 2019-01-08 12:35 | disposition home or self-care (01) | DRG 65 ==
LOC: ED 17:36 → MS2 19:36
PROVIDERS: ADMIT Internal Medicine; ATTEND Nurse Practitioner Gerontology
DX: I63.521 Cerebral infarction due to unspecified occlusion or stenosis of right anterior cerebral artery (principal); G81.94 Hemiplegia, unspecified affecting left nondominant side; R29.703 NIHSS score 3; I10 Essential (primary) hypertension; R07.9 Chest pain, unspecified; E11.65 Type 2 diabetes mellitus with hyperglycemia; T38.3X6A Underdosing of insulin and oral hypoglycemic [antidiabetic] drugs, initial encounter; Z91.138 Patient's unintentional underdosing of medication regimen for other reason; Y92.9 Unspecified place or not applicable
CPT/HCPCS: 36415; 70450; 70496; 70498; 70551; 80048; 80053; 80061; 80320; 81003; 83036; 83690; 84443; 84484; 85025; 85610; 85730; 92610; 93005; 93306; 97116; 97161; 97165; 99284; 99285; A9270; J1815; Q9967; 81001; 83721; 87086